=== PATIENT | female | born 1970 | race Caucasian/White ===

== ENCOUNTER 2018-01-21 11:41 | Outpatient (CLI) | payer OTHER ==
--- NOTE | 2018-01-26 17:03 | Mammography Report ---
DIGITAL SCREENING MAMMOGRAM: 01/21/2018 CLINICAL INDICATION: A 47-year-old with history of late childbearing for screening. COMPARISON: Films from [place], [place] dated 01/19/2012, 12/25/2010. TECHNIQUE: Routine CC and MLO projections as well as bilateral laterally exaggerated craniocaudal views were obtained of the breasts. FINDINGS: The breasts again demonstrate heterogeneously dense fibroglandular parenchyma bilaterally. A few punctate, typically benign calcifications are present. No suspicious masses, clustered microcalcifications, or regions of architectural distortion are identified. IMPRESSION: BENIGN FINDINGS. RECOMMENDATION: Routine annual screening unless otherwise clinically indicated. BIRADS CATEGORY 2 - BENIGN FINDINGS. STANDARD QUALIFYING STATEMENTS: 1. This examination was reviewed with the aid of Computer-Aided Detection (CAD). 2. A negative or benign imaging report should not delay biopsy if clinically suspicious findings are present. Consider surgical consultation if warranted. More than 5% of cancers are not identified by imaging. 3. Dense breasts may obscure an underlying neoplasm. TD: 01/26/2018 17:03
== END 2018-01-21 11:42 | disposition home or self-care (01) ==
LOC: DI.S 11:41
PROVIDERS: ATTEND Naturopath
DX: Z12.31 Encounter for screening mammogram for malignant neoplasm of breast (principal)
CPT/HCPCS: 77067

== ENCOUNTER 2018-02-02 19:59 | Outpatient (CLI) | payer OTHER ==
--- NOTE | 2018-02-03 09:40 | Ultrasound Report ---
EXAM: LEFT LOWER EXTREMITY VENOUS ULTRASOUND EXAM DATE: 02/02/2018 08:38 PM. CLINICAL HISTORY: PAIN IN LEFT CALF, WORSE WITH KNEE FLEXION. Onset 6-8 weeks ago. COMPARISON: None. TECHNIQUE: Real-time sonographic vascular imaging was performed by the court bailiff or sheriff through the lower extremity utilizing both color-flow and Doppler spectral analysis. Multiple site safety representative static shabana ges were saved for review. FINDINGS: Common Femoral Vein (CFV): Normal. CFV-GSV Junction: Normal. Profunda Femoral Vein (PFV): Normal. Femoral Vein (FV) Prox: Normal. Femoral Vein (FV) Mid: Normal. Femoral Vein (FV) Dist: Normal. Popliteal Vein: Normal. Posterior Tibial Veins: Normal. Peroneal Veins: Normal. Other: None. IMPRESSION: 1. No evidence of left lower extremity deep venous thrombosis. [facility] Referring Provider Line: [phone] SITE ID: [id number]
== END 2018-02-02 20:00 | disposition home or self-care (01) ==
LOC: DI 19:59
PROVIDERS: ATTEND Naprapath
DX: M79.662 Pain in left lower leg (principal)

== ENCOUNTER 2019-07-16 17:56 | Emergency (ER) | payer BC, OTHER ==
[2019-07-16 18:40] LABS: BILIRUBIN,URINE NEGATIVE (NEGATIVE); KETONES,URINE (UA) NEGATIVE (NEGATIVE)
--- NOTE | 2019-07-16 18:40 | ED Physician Documentation ---
History of Present Illness - Stated complaint Stated Complaint: FEMALE - Chief complaint Chief Complaint: General - History obtained from History obtained from: Patient - History of Present Illness Timing: Yesterday - Additonal information Additional information: This is a 48-year-old woman who presents with complaints that yesterday she had some burning and urinary frequency and was nauseous she thought she might be getting a urinary tract infection so she started drinking a lot of water and this morning urine was dark and cloudy so she was taking cranberry juice and also took an Azo tablet through the day she developed this achy sensation in the right side and in the lower back. She describes it as a tightening and spasming of pain. She has not vomited. She did not check her temperature at home but did have the chills. Denies history of kidney stones or infection. She is been diagnosed with gallstones in the past but did not have a cholecystectomy. 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 Review of Systems Constitutional: reports: Chills. denies: Fever Cardiac: denies: Palpitations Respiratory: reports: Other (Pain is worse with breathing). denies: Cough GI: reports: Abdominal Pain, Nausea. denies: Vomiting : reports: Dysuria, Frequency. 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 - Present Medications Home Medications: Ambulatory Orders Medication Instructions Recorded Confirmed FLUoxetine [PROzac] 20 mg PO DAILY 07/16/19 07/16/19 Levothyroxine [Synthroid] 125 mcg PO QDAC 07/16/19 07/16/19 Sulfamethox/Trimeth 800/160 1 each PO BID #14 tablet 07/16/19 [Bactrim Ds 800/160] - Allergies Allergies/Adverse Reactions: Allergies Allergy/AdvReac Type Severity Reaction Status Date / Time No Known Drug Allergies Allergy Verified 07/16/19 18:05 - Social History Does the pt smoke?: No Smoking Status: Never smoker Does the pt drink ETOH?: No Does the pt have substance abuse?: No - Immunizations Immunizations are current?: Yes PD ED PE NORMAL - Vitals Vital signs reviewed: Yes - General General: Alert and oriented X 3, No acute distress, Well developed/nourished, Other (She looks uncomfortable. She was up and down out of the chair and then was laying on the exam table.) - HEENT HEENT: Atraumatic, PERRL, Other (No scleral icterus) - Cardiac Cardiac: RRR, No murmur - Respiratory Respiratory: No respiratory distress, Clear bilaterally - Abdomen Abdomen: Normal bowel sounds, Other (Tender in the right upper quadrant with deep palpation.). No: No organomegaly - Back Back: Other (Right costovertebral angle tenderness) - Derm Derm: Normal color, No rash - Extremities Extremities: No deformity - Neuro Neuro: Alert and oriented X 3, Other (No gross neurological deficits) - Psych Psych: Normal mood, Normal affect Results - Vitals Vitals: Oxygen O2 Source Room air - Labs Labs: Laboratory Tests 07/16/19 07/16/19 07/16/19 18:25 19:10 19:10 WBC 12.4 H RBC 5.04 Hgb 14.4 Hct 44.3 MCV 87.9 MCH 28.6 MCHC 32.5 RDW 12.5 Plt Count 341 MPV 10.0 Neut # (Auto) 8.9 H Lymph # (Auto) 2.2 [place] # (Auto) 1.0 Eos # (Auto) 0.3 Baso # (Auto) 0.1 Absolute Nucleated RBC 0.00 Nucleated RBC % 0.0 Sodium 138 Potassium 3.6 Chloride 99 L Carbon Dioxide 29 Anion Gap 10.0 BUN 10 Creatinine 0.7 Estimated GFR (MDRD) 89 Glucose 111 H Calcium 9.3 Total Bilirubin 0.8 AST 21 ALT 20 Alkaline Phosphatase 81 Total Protein 7.7 Albumin 4.4 Globulin 3.3 Albumin/Globulin Ratio 1.3 Lipase 27 Urine Color ORANGE Urine Clarity HAZY Urine pH Ur Specific [place] Urine Protein Urine Glucose (UA) Urine Ketones NEGATIVE Urine Occult Blood Urine Nitrite Urine Bilirubin NEGATIVE Urine Urobilinogen Ur Leukocyte Esterase Urine RBC TNTC H Urine WBC >25 H Ur Squamous Epith Cells FEW Squamous Urine Bacteria Many H Ur Microscopic Review INDICATED Urine Culture Comments Not Reportable Urine HCG, Qual NEGATIVE - Rads (name of study) CT abd/pelvis Radiology: See rad report (Neg kidney stone) PD MEDICAL DECISION MAKING - ED course ED course: Her white blood cell count was 12.4. Normal BUN and creatinine. Her urine had too numerous to count red blood cells and greater than 25 white blood cells with many bacteria. Culture has been set up. CT scan of the abdomen and pelvis was ordered to rule out kidney stone and there was no sign of kidney stone or hydronephrosis. Her pain was essentially completely relieved with 30 mg of Toradol and she had a liter of normal saline. She will be discharged with Bactrim prescription for 2 weeks and instructions to take ibuprofen for pain and follow-up with her primary care provider after finishing the antibiotics to make sure the infection is cleared. Follow-up sooner if she experiences worsening pain, is vomiting and cannot keep anything down or has fever. Departure - Departure Disposition: 01 Home, Self Care Clinical Impression: Pyelonephritis Condition: Good Instructions: Pyelonephritis Dc Follow-Up: MARIA TERESA CARLTON [Primary Care Provider] - Prescriptions: Sulfamethox/Trimeth 800/160 [Bactrim Ds 800/160] 1 each PO BID #14 tablet Comments: Drink at least ten 8 ounce glasses of water a day. Take the Bactrim as prescribed twice a day. Use ibuprofen [id number] up to 4 tablets every 8 hours with food for pain. Follow-up with your primary care provider to have the urine retested after finishing the antibiotics. The urine has been cultured and we will contact you if we need to change the antibiotic. Discharge Date/Time: 07/16/19 23:10
[2019-07-16 18:41] LABS: CLARITY,URINE HAZY (CLEAR); HCG UR QUAL NEGATIVE
[2019-07-16] MEDS ORDERED: KETOROLAC 30 MG/ML VIAL IVP STA (19:00)
[2019-07-16] MEDS ORDERED: SODIUM CHLORIDE 0.9% 1,000 ML IV ONE (19:00)
[2019-07-16 19:06] LABS: BACTERIA,URINE Many /HPF (None Seen); RBC,URINE TNTC /HPF (0-5); SQUAMOUS EPITHELIAL CELL,UR FEW Squamous (<= Few)
[2019-07-16 19:18] LABS: BASOPHILS # (AUTO) 0.1 10^3/uL (0.0-0.1); BASOPHILS % (AUTO) 0.5 %; EOSINOPHILS # (AUTO) 0.3 10^3/uL (0.0-0.7); EOSINOPHILS % (AUTO) 2.1 %; HGB - HEMOGLOBIN 14.4 g/dL (12.0-16.0); LYMPHOCYTES # (AUTO) 2.2 10^3/uL (1.5-3.5); LYMPHOCYTES % (AUTO) 17.8 %; MEAN CORPUSCULAR HEMOGLOBIN 28.6 pg (27.0-31.0); MEAN CORPUSCULAR HGB CONC 32.5 g/dL (32.0-36.0); MEAN CORPUSCULAR VOLUME 87.9 fL (81.0-99.0); NEUTROPHILS # (AUTO) 8.9 10^3/uL (1.5-6.6); NEUTROPHILS % (AUTO) 71.1 %; PLT - PLATELET COUNT 341 10^3/uL (130-450); RED BLOOD COUNT 5.04 10^6/uL (4.20-5.40); RED CELL DISTRIBUTION WIDTH 12.5 % (12.0-15.0); WHITE BLOOD COUNT 12.4 x10^3/uL (4.8-10.8)
[2019-07-16 19:32] LABS: ALBUMIN 4.4 g/dL (3.2-5.5); ALBUMIN/GLOBULIN RATIO 1.3 (1.0-2.2); BILIRUBIN,TOTAL 0.8 mg/dL (0.2-1.0); CALCIUM 9.3 mg/dL (8.5-10.3); CREATININE 0.7 mg/dL (0.4-1.0); TOTAL PROTEIN 7.7 g/dL (6.7-8.2)
--- NOTE | 2019-07-16 22:08 | CT Report ---
Reason: r flank pain; r/o stone Procedure Date: 07/16/2019 Accession Number: [id number] / [id number] Procedure: CT - Abdomen/Pelvis WO CPT Code: FULL RESULT: EXAM: CT ABDOMEN AND PELVIS (CT KUB) EXAM DATE: 07/16/2019 09:51 PM. CLINICAL HISTORY: R flank pain; r/o stone. COMPARISONS: None. TECHNIQUE: Routine axial helical CT imaging was performed through the abdomen and pelvis without IV contrast. Reconstructions: Coronal and sagittal. In accordance with CT protocol optimization, one or more of the following dose reduction techniques were utilized for this exam: automated exposure control, adjustment of mA and/or KV based on patient size, or use of iterative reconstructive technique. FINDINGS: Lung Bases: Unremarkable. Right Kidney/Ureter: No stones, hydronephrosis, or hydroureter. No perinephric fat stranding. Left Kidney/Ureter: 1 cm simple cyst and super pole of left kidney. No stones, hydronephrosis, or hydroureter. No perinephric fat stranding. Other Solid Organs: Noncontrast images of the solid organs are grossly unremarkable. Gallbladder/Bile Ducts: Unremarkable. Peritoneal Cavity: No free fluid, free air or karin adenopathy. Bowel is grossly unremarkable. Pelvic Organs: No bladder stones or wall thickening. Noncontrast images of the visualized pelvic organs are unremarkable. Vasculature: Unremarkable. Other: None. IMPRESSION: No urinary tract stones or obstruction. Normal appendix. Unremarkable uterus and ovaries. No acute abdominal pathology. [facility]
[2019-07-16] MEDS ORDERED: cefTRIAXone 2 GM in SODIUM CHLORIDE 0.9% MINIBAG 100 ML IV STA (22:25)
[2019-07-16 23:23] VITALS: BP 110/63
== END 2019-07-16 23:10 | disposition home or self-care (01) ==
LOC: ED 17:56
DX: N12 Tubulo-interstitial nephritis, not specified as acute or chronic (principal)
CPT/HCPCS: 36415; 74176; 80053; 81001; 81003; 81025; 83690; 85025; 87086; 99284

== ENCOUNTER 2019-09-13 11:30 | Outpatient (CLI) | payer BC ==
--- NOTE | 2019-09-13 13:32 | Mammography Report ---
Reason: ROUTINE MAMMO Procedure Date: 09/13/2019 Accession Number: [id number] / [id number] Procedure: MGS - Screening Mammo Dig Bilat CPT Code: Final Report FULL RESULT: EXAM: Screening Mammo Dig Bilat DATE: 09/13/2019 11:53 AM CLINICAL HISTORY: The patient is an asymptomatic 47-year-old female presenting for screening mammography. Late childbearing. Second-degree family history breast cancer. TECHNIQUE: (B) - Bilateral CC and MLO views were obtained. COMPARISON: 01/21/2018, 01/19/2012, 12/25/2010 PARENCHYMAL PATTERN: (D) - The breasts demonstrate heterogeneously dense fibroglandular parenchyma bilaterally. FINDINGS: RIGHT BREAST: There are no suspicious masses, calcifications, or areas of distortion. LEFT BREAST: There may be developing asymmetry in the central medial position; reference CC view only. Recommend targeted diagnostic evaluation. The remainder the parenchymal pattern is stable given positional variation. IMPRESSION: RIGHT BREAST: Negative examination. BI-RADS category 1. LEFT BREAST: Incomplete examination. BI-RADS Category 0 RECOMMENDATION: Recommend targeted diagnostic evaluation of the left breast with ultrasound if indicated. The final impression is pending at this time. BI-RADS CATEGORY: BI-RADS Category 0 STANDARD QUALIFYING STATEMENTS: 1. This examination was reviewed with the aid of Computer-Aided Detection (CAD). 2. A negative or benign imaging report should not preclude biopsy if clinically suspicious findings are present. 3. Dense breasts may obscure an underlying neoplasm.
== END 2019-09-13 11:31 | disposition home or self-care (01) ==
LOC: DI.S 11:30
PROVIDERS: ATTEND Naturopath
DX: Z12.31 Encounter for screening mammogram for malignant neoplasm of breast (principal); R92.8 Other abnormal and inconclusive findings on diagnostic imaging of breast; Z80.3 Family history of malignant neoplasm of breast
CPT/HCPCS: 77067

== ENCOUNTER 2019-10-20 13:58 | Outpatient (CLI) | payer SELFPAY ==
--- NOTE | 2019-10-20 15:27 | Mammography Report ---
Reason: ABNORMAL MAMMOGRAM Procedure Date: 10/20/2019 Accession Number: [id number] / [id number] Procedure: TEE - Diag Special Views Dig LT CPT Code: Final Report FULL RESULT: EXAM: Diag Special Views Dig LT with isai DATE: 10/20/2019 3:15 PM CLINICAL HISTORY: The patient is an asymptomatic 48-year-old female recalled from screening mammogram (09/13/2019) for left breast diagnostic evaluation. Late childbearing. Second degree family history breast cancer. TECHNIQUE: (L) - Left. Targeted CC, rolled CC and true lateral views COMPARISON: 09/13/2019, 01/21/2018, 01/19/2012 PARENCHYMAL PATTERN: FINDINGS: The described focal asymmetry in the central medial position near fully dissipates on targeted tomographic diagnostic imaging. The parenchymal pattern is stable when compared to prior examinations given variation in positioning and interval involution. No suspicious mass, distortion or pleomorphic calcifications. No evidence for malignancy. IMPRESSION: Benign findings. BI-RADS category 2. RECOMMENDATION: (ANNUAL) - Recommend routine annual screening mammography. BI-RADS CATEGORY: (2) - Benign Findings. STANDARD QUALIFYING STATEMENTS: A negative or benign imaging report should not preclude biopsy if clinically suspicious findings are present. Dense breasts may obscure an underlying neoplasm. This examination was reviewed with the aid of 3D breast imaging (tomosynthesis).
== END 2019-10-20 13:59 | disposition home or self-care (01) ==
LOC: DI 13:58
PROVIDERS: ATTEND Naturopath
DX: R92.8 Other abnormal and inconclusive findings on diagnostic imaging of breast (principal); Z80.3 Family history of malignant neoplasm of breast

== ENCOUNTER 2020-12-27 08:29 | Outpatient (CLI) | payer OTHER ==
--- NOTE | 2020-12-27 09:01 | XRAY Report ---
PROCEDURE: Hip w/Pelvis 2-3V RT INDICATIONS: PAIN IN R HIP TECHNIQUE: AP pelvis with lateral view(s) of the right hip(s). COMPARISON: None. FINDINGS: Bones: No fractures or dislocations. Pelvic ring appears intact. No suspicious bony lesions. Soft tissues: The visualized bowel gas pattern is normal. No suspicious soft tissue calcifications. IMPRESSION: No visualized acute fracture or dislocation. However, occult injury cannot be excluded. Recommend short interval imaging follow-up in 7-10 days as clinically indicated for additional evalua tion. Reviewed by: Kiesha Suh MD on 12/27/2020 9:00 AM PDT Approved by: Kiesha Suh MD on 12/27/2020 9:00 AM PDT Station ID: [id number]
--- NOTE | 2020-12-27 09:01 | XRAY Report ---
PROCEDURE: Knee 3 View RT INDICATIONS: RIGHT KNEE PAIN TECHNIQUE: 3 views of the right knee(s) were acquired. COMPARISON: None. FINDINGS: Bones: No fractures or dislocations. No suspicious bony lesions. Soft tissues: Mild joint effusion. No suspicious soft tissue calcifications. IMPRESSION: Mild effusion. No visualized acute fracture or dislocation. However, occult injury canno t be excluded. Recommend short interval imaging follow-up in 7-10 days as clinically indicated for ad ditional evaluation. Reviewed by: Kiesha Suh MD on 12/27/2020 8:59 AM PDT Approved by: Kiesha Suh MD on 12/27/2020 8:59 AM PDT Station ID: [id number]
== END 2020-12-27 08:30 | disposition home or self-care (01) ==
LOC: DI.S 08:29
PROVIDERS: ATTEND Naturopath
DX: M25.551 Pain in right hip (principal); M25.561 Pain in right knee; M25.461 Effusion, right knee